=== PATIENT | female | born 1970 | race Caucasian/White ===

== ENCOUNTER → 2017-01-29 | Outpatient (CLI) | payer BC ==
[2017-01-29 10:51] LABS: Basophils # (A) 0.1 k/uL (0-0.2); Basophils % (A) 1 %; CH 31.4; CHCM 33.5; Eosinophils # (A) 0.2 k/uL (0-0.7); Eosinophils % (A) 3 %; HCT 42.5 % (34.0-46.0); HDW 2.39; HGB 13.8 gm/dL (11.4-16.0); Luc # (Auto) 0.14; Luc % (Auto) 2; Lymphocytes % (A) 35 %; MCH 30.6 pg (25.0-35.0); MCHC 32.5 g/dL (31.0-37.0); MCV 94.2 fL (80.0-100.0); Mean Platelet Volume 6.9; Monocytes # (A) 0.3 k/uL (0-1.0); Monocytes % (A) 6 %; Neutrophils # (A) 3.1 k/uL (1.3-7.7); Neutrophils % (A) 54 %; RBC 4.52 m/uL (3.80-5.40); RDW 12.5 % (11.5-15.5); WBC 5.8 k/uL (3.8-10.6); WBC (Perox) 5.82
[2017-01-29 11:25] LABS: ALT 34 U/L (9-52); AST 19 U/L (14-36); Alkaline Phosphatase 64 U/L (38-126); Anion Gap 9 mmol/L; Blood Urea Nitrogen 13 mg/dL (7-17); C Reactive Protein <5.0 mg/L (<10.0); Calcium 9.6 mg/dL (8.4-10.2); Carbon Dioxide 26 mmol/L (22-30); Chloride 105 mmol/L (98-107); Cholesterol 174 mg/dL (<200); Creatine Kinase 58 U/L (30-135); Glucose 87 mg/dL (74-99); HDL Cholesterol 60 mg/dL (40-60); Non-African American GFR(MDRD) >60 (>60 ml/min/1.73 sqM); Potassium 4.4 mmol/L (3.5-5.1); Sodium 140 mmol/L (137-145); Total Bilirubin 0.8 mg/dL (0.2-1.3); Total Protein 7.3 g/dL (6.3-8.2); Triglycerides 142 mg/dL (<150)
[2017-01-29 12:06] LABS: Erythrocyte Sedimentation Rate 8 mm/hr (0-20)
== END | disposition home or self-care (01) ==
LOC: LABWHC1 09:07
PROVIDERS: ATTEND Internal Medicine
DX: Z00.00 Encounter for general adult medical examination without abnormal findings (principal); E78.5 Hyperlipidemia, unspecified; I10 Essential (primary) hypertension; E55.9 Vitamin D deficiency, unspecified
CPT/HCPCS: 36415; 80053; 80061; 82306; 82550; 84443; 85025; 85652; 86140

== ENCOUNTER → 2020-09-21 | Outpatient (CLI) | payer BC ==
--- NOTE | 2020-09-21 20:55 | CONS ---
CONSULTATION REASON FOR CONSULTATION: Sleep apnea. 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 The patient is known to me and I diagnosed her having obstructive sleep apnea back in 2012. At that time the patient had an AHI of 27. She was treated with a CPAP pressure of 7 cm of water with Oneal FX nasal pillows. She did well while on treatment. Currently her machine is broken and she is coming in for further advice. Note that she has not gotten any of her supplies over the past 5-6 years, and she also wants to move on to a different DME company. Her previous DME was [employer]. Note that over the years she has gained around 10-15 pounds. Currently she is symptomatic, knowing that her treatment is not absolutely effective, and the patient is having snoring, apneas, and excessive tiredness and sleepiness during the day. She is going to bed around 10 p.m., waking up at 7 a.m. in the morning, and she feels tired and non- refreshed during the day. No naps, as the patient is quite busy doing her work. She prefers to sleep on her side. She watches no TV in her bedroom. She takes no naps during the day. No sleep paralysis. No hallucinations. No cataplexy. No other cardiovascular complications. PAST MEDICAL HISTORY: Hypertension. PAST SURGICAL HISTORY: and cholecystectomy. ALLERGIES: SULFA. OUTPATIENT MEDICATION: Outpatient medication includes vitamin D3, losartan. SOCIAL HISTORY: The patient is a nonsmoker. No history of alcoholism. No history of IV drugs. FAMILY HISTORY: Her mother had brain bleed/stroke. Her mother also had hypertension. The family history is positive for obstructive sleep apnea in both parents. Mother and father had obstructive sleep apnea. REVIEW OF SYSTEMS: Fourteen-point review of systems was done. Positive findings are all mentioned above in the history of present illness. Her current [place] score is 8. As mentioned, her interval history is positive for weight gain. No sleep paralysis. No hallucinations. No cataplexy. No restlessness in the lower extremities. No anxiety. No depression. No panic attacks. No PTSD. PHYSICAL EXAMINATION: HER CURRENT VITALS: BP was 170/100, pulse 80, respirations 16, temperature 98.3, saturation 98% on room air. Height is 5 feet 8 inches. Weight is 254, BMI 38.0. Neck size is 16 inches. GENERAL APPEARANCE: Calm, comfortable. HEAD: Atraumatic, normocephalic. NECK: Supple. No JVD. No goiter or neck masses. Mallampati class IV. LUNGS: Clear to auscultation. HEART: Heart sounds are regular rate and rhythm. Normal S1, S2. No S3, S4. No murmurs. ABDOMEN: Soft, nontender. No organomegaly. EXTREMITIES: No edema. No cyanosis or clubbing. NEUROLOGIC: Awake and alert. There is no focal neurological deficit. IMPRESSION: 1. Obstructive sleep apnea, moderate to severe, AHI of 27, based on a sleep study in 2012, and the patient was treated with a CPAP pressure of 7 cm of water utilizing Oneal FX nasal pillows. 2. Obesity. Current BMI is 38 with a weight of 254. 3. Chronic hypersomnia. Her somnolence and sleepiness have gotten worse, as the patient has a malfunctioning CPAP unit. Her current [place] score is 8. 4. Hypertension. PLAN: 1. Monitor blood pressure and report back to the primary care physician. 2. Weight loss. 3. Will proceed with a home sleep study to reestablish diagnosis of sleep apnea. Once positive, the patient will be given a newer-generation ResMed APAP unit which will be set at a pressure of 7 cm of water with the potential of further adjustments based on her clinical response and compliancy. She is interested in switching her DME. I would recommend going either with [facility] or [facility] rather than [facility] if she does not want to stay with [facility] this point in time. 4. Optimize sleep hygiene measures. 5. Will continue to follow. MMODL / IJN: [id number] /
== END | disposition home or self-care (01) ==
LOC: SLEEP 15:12
PROVIDERS: ATTEND Internal Medicine Critical Care Medicine
DX: G47.33 Obstructive sleep apnea (adult) (pediatric) (principal); E66.9 Obesity, unspecified; G47.10 Hypersomnia, unspecified; R40.0 Somnolence; I10 Essential (primary) hypertension; Z68.38 Body mass index [BMI] 38.0-38.9, adult; Z99.89 Dependence on other enabling machines and devices
CPT/HCPCS: 99211

== ENCOUNTER → 2020-12-21 | Outpatient (CLI) | payer BC ==
--- NOTE | 2020-12-21 21:40 | PN ---
PROGRESS NOTE I am seeing this 50-year-old female patient regarding her obstructive sleep apnea and a followup today in the sleep center. The patient is known to have obstructive sleep apnea, severe, with an AHI of 81. She is on APAP, minimum pressure of 5, maximum pressure of 15. Her treatment has been extremely successful. She loves her machine. She continues to benefit from the machine. Sleep quality is good. She is waking up refreshed, averaging around 6.9 hours of CPAP use per night at an average pressure of 10.3 cm of water. Her CPAP use for more than 4 hours is 29/30. Leak is around 5 L/minute and AHI is down to 0.3. No complaints. No significant weight loss or weight gain. Her weight is around 250, which is 4 pounds lower compared to her earlier evaluation. [place] score is 5. PHYSICAL EXAMINATION: BP is 138/91, pulse 75, respirations 20, temperature 98.0. [place] score is 5. Weight is 250. GENERAL APPEARANCE: Calm, comfortable. HEAD: Atraumatic, normocephalic. NECK: Supple. No JVD. No goiter or neck masses. LUNGS: Clear to auscultation. HEART: Heart sounds are regular rate and rhythm. Normal S1, S2. No S3, S4. No murmurs. ABDOMEN: Soft, nontender. No organomegaly. EXTREMITIES: No edema. No cyanosis or clubbing. NEUROLOGIC: Awake and alert. There is no focal neurological deficit. IMPRESSION: 1. Obstructive sleep apnea, severe, with an AHI of 83, successfully treated. 2. Hypersomnia, improved. 3. Obesity. PLAN: 1. Continue APAP therapy at the pressure of 5 minimum, 15 maximum. 2. Continue using the AirFit N20 nasal mask. 3. Encourage weight loss. 4. No need for any further adjustment. Will continue to follow. MMODL / IJN: [id number] /
== END ==
LOC: SLEEP 15:34
PROVIDERS: ATTEND Internal Medicine Critical Care Medicine
DX: G47.33 Obstructive sleep apnea (adult) (pediatric) (principal); Z99.89 Dependence on other enabling machines and devices; E66.9 Obesity, unspecified

== ENCOUNTER → 2021-05-18 | Outpatient (CLI) | payer BC ==
--- NOTE | 2021-05-20 11:44 | MM ---
Reason for exam: screening (asymptomatic). Last mammogram was performed 8 years and 2 months ago. History: Benign right breast aspiration of the right breast, June 02, 2013. Benign left breast aspiration of the left breast, June 02, 2013. Physical Findings: A clinical breast exam by your physician is recommended on an annual basis and results should be correlated with mammographic findings. MG 3D Screening Mammo W/Cad Bilateral CC and MLO view(s) were taken. No prior studies available for comparison. The breast tissue is heterogeneously dense. This may lower the sensitivity of mammography. No significant changes when compared with prior studies. ASSESSMENT: Benign, BI-RAD 2 RECOMMENDATION: Routine screening mammogram of both breasts in 1 year.
== END | disposition home or self-care (01) ==
LOC: RADMAMWWP 08:46
PROVIDERS: ATTEND Family Medicine
DX: Z12.31 Encounter for screening mammogram for malignant neoplasm of breast (principal)
CPT/HCPCS: 77063; 77067

== ENCOUNTER → 2022-02-14 | Outpatient (CLI) | payer BC ==
--- NOTE | 2022-02-14 13:48 | P.PN ---
Subjective Progress Note Date: 02/14/22 52-year-old female patient with known history of obstructive sleep apnea, severe with an AHI of 81. The patient is coming in for an annual check. Her last evaluation with me was on 12/21/2020. The patient has a functioning CPAP unit which is a ResMed 10. The machine is set at a pressure of minimum 5, maximum of 15, automatic mode. She continues using the machine every night without interruption. She hasn't gone to sleep at all without her machine. At times, she wakes up in the middle of the night and she is unable to go back to bed. For those days, she has taken Tylenol PM. She tries to go bed early at around 10 PM and she's trying to get out of bed at around 7:00 in the morning. Based o n a compliance it was collected on the CPAP machine, the patient is utilizing machine every night and compliance for more than 4 hours at 100%, her average number of hours of CPAP use around 7.1 hours per night and the leak is around 11 L per minute and the patient's AHI is down to 0.4. She is using the air fit N20 nasal mask. In terms of her weight, the patient has managed to stay stable and currently she is waking up to 40 pounds. No new onset comorbidities. She remains on losartan for blood pressure control. 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 No anxiety. No depression. No head trauma. No substance abuse. No other complaints otherwise for now Medication includes losartan, vitamin D and ibuprofen Objective - Exam BP is 132/84 with a pulse of 70 and the respiration of 12 and a temperature of 97 0 and saturation 90% on room air. Weight is 248, height is 5' 8 and a body mass index is 38.0. The patient carries an [place] score of 5. The patient appeared well nourished and normally developed. Vital signs as documented. Head exam is unremarkable. No scleral icterus or corneal arcus noted. Neck is without jugular venous distension, thyromegaly, or carotid bruits. Carotid upstrokes are brisk bilaterally. Lungs are clear to auscultation and percussion. Cardiac exam reveals the PMI to be normally sized and situated. Rhythm is regular. First and second heart sounds normal. No murmurs, rubs or gallops. Abdominal exam reveals normal bowel sounds, no masses, no organomegaly and no aortic enlargement. Extremities are nonedematous and both femoral and pedal pulses are normal.Examination of the skin revealed no evidence of significant rashes, suspicious appearing nevi or other concerning lesions.Neurologically, the patient is awake and alert and the patient does not have any focal neurological deficit. Cranial nerves are essentially intact. Assessment and Plan Plan: Severe symptomatic obstructive sleep apnea with an AHI of 81, adequately treated with APAP 15 and the patient has been extremely compliant and the treatment is been very successful Sleep maintenance insomnia probably related to the excessive number of hours that she is spending at bed which is obviously isn't using her sleep efficiency. She is taking Tylenol PM accordingly. Obesity with a body mass index of 38 Chronic hypersomnia improved and the patient's [place] score is down to 5 Hypertension Plan Encourage weight loss Sleep restrictions to eliminate some of her sleep maintenance insomnia. No need for the sleeping pill at this point in time Refill CPAP supplies including the mask Her machine is functional and no need for any adjustment on her pressure settings Optimize sleep hygiene measures Maintain a regular sleep schedule See him back in one year time of follow-up.
== END ==
LOC: SLEEP 13:24
PROVIDERS: ATTEND Internal Medicine Critical Care Medicine
DX: G47.33 Obstructive sleep apnea (adult) (pediatric) (principal); E66.9 Obesity, unspecified; I10 Essential (primary) hypertension; Z68.38 Body mass index [BMI] 38.0-38.9, adult; Z88.2 Allergy status to sulfonamides